=== PATIENT | female | born 1975 | race Caucasian/White ===

== ENCOUNTER 2017-01-10 19:18 | Emergency (ER) | payer OTHER ==
[2017-01-10] MEDS ORDERED: FAMOTIDINE IV 20 MG/2 ML VIAL IVP ONE (19:47)
[2017-01-10] MEDS ORDERED: 0.9 % SODIUM CHLORIDE 1,000 ML BAG IV ONE (19:47)
--- NOTE | 2017-01-10 19:49 | Emergency Department Record ---
History of Present Illness - General Chief Complaint: Abdominal Pain Stated Complaint: ABD PAIN Time Seen by Provider: 01/10/17 19:42 Source: Patient Mode of Arrival: Ambulatory - History of Present Illness Initial Comments: The patient states that she was at her desk at work when she noticed mild epigastric pain, nonradiating, around 2 PM. she went to work out around 4 PM which made her stomach worse. She then ate fried chicken which made it worse still. Around 6 PM she was in the grocery store and nearly passed out there, and became diaphoretic. She is belching, but states she has done that frequently ever since her bariatric surgery performed last February from which she has lost 105 pounds since that time. Her current pain level is 9/10. She has not vomited. She had 2 episodes of diarrhea early this morning. MD Complaint: Abdominal pain Onset/Timin -: Hour(s) Location: Epigastric Radiation: None Migration to: No migration Severity: Severe Quality: Stabbing Consistency: Constant Improves With: Nothing Worsens With: Nothing Context: Other Associated Symptoms: Constipation, Diarrhea - Related Data Previous Rx's Medication Instructions Recorded Hyoscyamine Sulfate [Levsin] 0.25 mg PO Q6HR #14 tablet 01/10/17 Allergies Allergy/AdvReac Type Severity Reaction Status Date / Time No Known Drug Allergies Allergy Verified 01/10/17 19:25 Travel Screening - Travel/Exposure Within Last 30 Days Have you traveled within the last 30 days?: No - Travel/Exposure Within Last Year Have you traveled outside the [place] in the last year?: No - Additonal Travel Details Have you been exposed to anyone with a communicable illness?: No - Travel Symptoms Symptom Screening: Stomach Pain - Additional Travel Comment Additional Travel/Exposure Comment: coworker with influenza B Review of Systems Reviewed: No additional complaints except as noted below Constitutional: Reports: As per HPI. Denies: Chills, Fever, Malaise, Night sweats, Weakness, Weight change Eyes: Reports: As per HPI. Denies: Eye discharge, Eye pain, Photophobia, Vision change ENT: Reports: As per HPI. Denies: Congestion, Dental pain, Ear pain, Epistaxis , Hearing loss, Throat pain Respiratory: Reports: As per HPI. Denies: Cough, Dyspnea, Hemoptysis, Stridor, Wheezes Cardiovascular: Reports: As per HPI. Denies: Arrhythmia, Chest pain, Dyspnea on exertion, Edema, Murmurs, Orthopnea, Palpitations, Paroxysmal nocturnal dyspnea, Rheumatic Fever, Syncope Endocrine: Reports: As per HPI. Denies: Fatigue, Heat or cold intolerance, Polydipsia, Polyuria Gastrointestinal: Reports: As per HPI. Denies: Abdominal pain, Constipation, Diarrhea, Hematemesis, Hematochezia, Melena, Nausea, Vomiting Genitourinary: Reports: As per HPI. Denies: Abnormal menses, Discharge, Dyspareunia, Dysuria, Frequency, Hematuria, Incontinence, Retention, Urgency Musculoskeletal: Reports: As per HPI. Denies: Arthralgia, Back pain, Gout, Joint swelling, Myalgia, Neck pain Skin: Reports: As per HPI. Denies: Bruising, Change in color, Change in hair/ nails, Lesions, Pruritus, Rash Neurological: Reports: As per HPI. Denies: Abnormal gait, Confusion, Headache, Numbness, Paresthesias, Seizure, Tingling, Tremors, Vertigo, Weakness Psychiatric: Reports: As per HPI. Denies: Anxiety, Auditory hallucinations, Depression, Homicidal thoughts, Suicidal thoughts, Visual hallucinations Hematological/Lymphatic: Reports: As per HPI. Denies: Anemia, Blood Clots, Easy bleeding, Easy bruising, Swollen glands Past Medical History - SOCIAL HISTORY Smoking Status: Light tobacco smoker (<10/day) Alcohol Use: Rare Drug Use: None - RESPIRATORY Hx Respiratory Disorders: No - CARDIOVASCULAR Hx Cardio Disorders: No - NEURO Hx Neuro Disorders: No - GI Hx GI Disorders: No - Hx Genitourinary Disorders: No - ENDOCRINE Hx Endocrine Disorders: No - MUSCULOSKELETAL Hx Musculoskeletal Disorders: No - PSYCH Hx Psych Problems: No - HEMATOLOGY/ONCOLOGY Hx Hematology/Oncology Disorders: No Family Medical History Any Significant Family History?: Yes Family Hx Comment (NOT TO BE USED IN PLACE OF ITEMS BELOW): Colon polyps in sister and mother Hx HTN: Father Physical Exam - General General Appearance: Alert, Oriented x3, Cooperative, Moderate distress - Head Head exam: Normal inspection - Eye Eye exam: Normal appearance, PERRL, EOMI Pupils: Normal accommodation - ENT ENT exam: Normal exam, Mucous membranes moist, Normal external ear exam, Normal orophraynx, TM's normal bilaterally Ear exam: Normal external inspection. negative: External canal tenderness Nasal Exam: Normal inspection. negative: Discharge, Sinus tenderness Mouth exam: Normal external inspection, Tongue normal Teeth exam: Normal inspection. negative: Dental caries Throat exam: Normal inspection. negative: Tonsillar erythema, Tonsillar exudate - Neck Neck exam: Normal inspection, Full ROM. negative: Tenderness - Respiratory Respiratory exam: Normal lung sounds bilaterally. negative: Respiratory distress - Cardiovascular Cardiovascular Exam: Regular rate, Normal rhythm, Normal heart sounds - GI/Abdominal GI/Abdominal exam: Soft, Normal bowel sounds, Tenderness (epigastric tenderness ). negative: Distended, Rebound, Rigid - Rectal Rectal exam: Deferred - exam: Deferred - Extremities Extremities exam: Normal inspection, Full ROM, Normal capillary refill. negative: Tenderness - Back Back exam: Reports: Normal inspection, Full ROM. Denies: CVA tenderness (R), CVA tenderness (L), Muscle spasm, Rash noted, Tenderness - Neurological Neurological exam: Alert, Normal gait, Oriented X3, Reflexes normal - Psychiatric Psychiatric exam: Normal affect, Normal mood - Skin Skin exam: Dry, Intact, Normal color, Warm Course Vital Signs 01/10/17 19:23 Temperature 98.2 F Pulse Rate [ 72 Pulse Ox Probe] Respiratory 20 Rate Blood Pressure 120/75 [Left Arm] Pulse Ox 100 - Reevaluation(s) Reevaluation #1: The patient is in agreement with a CT scan. Deies contrast dye. She just got the GI cocktail and is belching. Pain feels more in the RUQ now. 01/10/17 19:57 Reevaluation #2: Patient is nauseated after starting to drink the contrast and having dilaudid. Zofran ordered. 01/10/17 20:12 Reevaluation #3: Spoke with Srawat Baker for Dr. Turcios who recommends she see her office partner Dr. Calderon on Friday morning. Informed her of 19 thousand WBC with left shift, however patient is comfortable and prefers to try going home at this time. She is aware that she is likely to have her pain return due to the cholecystitis. She is to return to [facility] if she worsens over the weekend, stay on clear liquids, and will be sent home with Levsin, and norco donnatol dispensed. 01/10/17 22:34 01/10/17 22:51 01/10/17 22:57 Reevaluation #4: Pain level now is 1-2 to 0.5 on a 10 scale. Will give her an IM shot for home and have her drive her home to bed. Patient prefers to go home and try to wait until Friday for her recheck. She agrees to go to [facility] if she worsens before Friday. at bedside and agrees. Abdomen is mildly to moderately tender on palpation RUQ, epigastric. No distention, rebound or rigidity. 01/10/17 22:36 01/10/17 22:52 01/10/17 22:53 01/10/17 22:57 Medical Decision Making - Management Options MDM Management: Additional Work-up Planned (e.g. ADM/Transfer/OP Study) (Close follow up Friday with surgeon. Return to [facility] if worsened before that.) - Data Complexity MDM Data: Labs Ordered and/or Reviewed, X-Ray Ordered and/or Reviewed (CT Abd/ Pelvis: Prominent Gall bladder and biliary tree, ? cholecystitis, correlate clinically, may require hida scan for further evaluation. No other abnormality per radiologist ) - Lab Data Result diagrams: 01/10/17 19:45 01/10/17 19:45 Disposition Disposition: Discharge Clinical Impression: Colic, biliary, Cholecystitis, unspecified Disposition: Home, Self-Care Condition: (1) Good Additional Instructions: Clear liquids only at home. Levsin one tab every 6 hours. If your symptoms return before Friday go to [facility] emergency. Friday morning call Dr. Turcios's office to be seen by Dr. Calderon. Office has been notified of this per Melinda Fam Prescriptions: Hyoscyamine Sulfate [Levsin] 0.25 mg PO Q6HR #14 tablet Forms: Patient Portal Access
[2017-01-10] MEDS ORDERED: MAGNESIUM HYDROXIDE/AL HYDROX 10.0001 ML, LIDOCAINE VISC 2% 200 MG, PHENOBARB/HYOSCY/AT... PO ONE ×3 (19:51)
[2017-01-10 19:59] LABS: HEMATOCRIT 40.3 % (35.0-47.0); HEMOGLOBIN 13.2 gm/dl (11.6-16.0); MEAN CELL VOLUME 87.4 fl (81-97); MEAN CORPUSCULAR HEMOGLOBIN 28.6 pg (27-33); MEAN CORPUSCULAR HGB CONC 32.8 g/dl (32-36); PLATELET COUNT 346 K/uL (130-400); RED BLOOD COUNT 4.61 M/uL (3.80-5.40); RED CELL DISTRIBUTION WIDTH 13.7 % (11.5-14.5)
[2017-01-10] MEDS ORDERED: HYDROMORPHONE HCL 1 MG/ML CPJ IVP ONE (20:05)
[2017-01-10 20:09] LABS: ALBUMIN 4.4 gm/dL (3.5-5.0); ALKALINE PHOSPHATASE 75 U/L (38-126); ALT/SGPT 70 U/L (9-52); ANION GAP 14.3 (7-16); AST/SGOT 115 U/L (14-36); BLOOD UREA NITROGEN 16 mg/dL (7-17); CARBON DIOXIDE 23.7 mmol/L (22-30); CREATININE 0.8 mg/dL (0.52-1.04); EST GLOMERULAR FILTRATION RATE > 60 ml/min; GLUCOSE,RANDOM 109 mg/dL (70-110); LIPASE 207 U/L (23-300); TOTAL PROTEIN 7.7 gm/dL (6.3-8.2)
[2017-01-10] MEDS ORDERED: ONDANSETRON HCL IV 4 MG/2 ML VIAL IVP ONE (20:12)
[2017-01-10 21:06] LABS: URINE APPEARANCE CLEAR; URINE BILIRUBIN NEGATIVE (NEGATIVE); URINE BLOOD NEGATIVE (NEGATIVE); URINE COLOR YELLOW; URINE GLUCOSE (UA) NEGATIVE (NEGATIVE); URINE KETONE NEGATIVE (NEGATIVE); URINE LEUKOCYTE ESTERASE NEGATIVE (NEGATIVE); URINE NITRITE NEGATIVE (NEGATIVE); URINE PROTEIN NEGATIVE (NEGATIVE); URINE UROBILINOGEN 0.2 E.U./dL (0.20 - 1.00)
[2017-01-10 21:11] LABS: HCG,QUALITATIVE URINE NEGATIVE (NEGATIVE)
[2017-01-10] MEDS ORDERED: PROMETHAZINE HCL 25 MG/ML VIAL IM ONE (22:45)
[2017-01-10] MEDS ORDERED: HYDROMORPHONE HCL 1 MG/ML CPJ IM ONE (22:45)
[2017-01-10] MEDS ORDERED: PHENOBARB PO ONE (22:46)
[2017-01-10] MEDS ORDERED: BELLADONNA ALK PO ONE (22:46)
[2017-01-10] MEDS ORDERED: HYDROCODONE/APAP 5/325MG TABLET PO ONE (22:54)
--- NOTE | 2017-01-13 14:55 | CT SCAN REPORT ---
EXAM: CT SCAN ABDOMEN/PELVIS W CONTRAST HISTORY: ABDOMINAL PAIN. TECHNIQUE: CT of the abdomen and pelvis was performed following the IV administration of 100 mL Omnipaque-300 contrast. Oral contrast also administered. COMPARISON: None. FINDINGS: Limited evaluation of the lung bases is unremarkable. Postsurgical change consistent with prior gastric sleeve procedure. The gallbladder appears mildly distended. Mild biliary ductal dilatation. The spleen, liver, adrenal glands, pancreas, kidneys are unremarkable. No evidence for bowel obstruction. Abundant stool in the colon. Normal appendix. No free air or free fluid. IMPRESSION: THE GALLBLADDER APPEARS MILDLY DISTENDED WITH MILD BILIARY DUCTAL DILATATION WELL. CONSIDER FURTHER ASSESSMENT WITH HEPATOBILIARY IMAGING AND/OR ULTRASOUND. CORRELATE WITH HISTORY. JOB NUMBER: [id number] MTDD
== END 2017-01-10 23:10 | disposition home or self-care (01) ==
LOC: ER 19:18
DX: K80.40 Calculus of bile duct with cholecystitis, unspecified, without obstruction (principal); R19.7 Diarrhea, unspecified; Z98.84 Bariatric surgery status
CPT/HCPCS: 99284 ×2; 96376; 96374; 96372; 96375; 83690; 80076; 80048; 81003; 81025; 85027; 74177; Q9967; J3490 ×2; J2405; J1170; J2550; J7030